=== PATIENT | female | born 1945 | race Asian ===

== ENCOUNTER 2021-03-23 22:48 | Emergency (ER) | payer OTHER ==
[2021-03-23 23:05] VITALS: BP 107/66; PULSE 103; BMI 30.2
[2021-03-24] MEDS ORDERED: ACETAMINOPHEN 1000 MG/100 ML VIAL IVPB ONE (00:26)
[2021-03-24] MEDS ORDERED: BENZOCAINE/MENTH/CETYLPYRD CL 1 EACH LOZENGE MM PRN ×2 (00:39→01:36)
[2021-03-24] MEDS ORDERED: AZITHROMYCIN IVPB 500 MG in DEXTROSE 5%-WATER - 250 ML IVPB ONE (00:41)
[2021-03-24] MEDS ORDERED: ACETAMINOPHEN INJECTION 100 ML IVPB ONE (00:44)
[2021-03-24 00:45] LABS: BASO % 0.9 % (0-2.0); EOS % 3.4 % (0-4.5); HEMATOCRIT 34.2 % (32.4-45.2); HEMOGLOBIN 11.8 GM/dL (10.7-15.3); LYMPH % 38.2 % (8-40); MCH 28.8 pg (25.7-33.7); MCHC 34.4 g/dl (32.0-36.0); MEAN CELL VOLUME 83.8 fl (80-96); MEAN PLT VOLUME 7.9 fl (7.5-11.1); MONO % 15.7 % (3.8-10.2); NEUT % 41.8 % (42.8-82.8); PLATELET COUNT 246 10^3/uL (134-434); RBC 4.08 M/mm3 (3.60-5.2); RDW 13.5 % (11.6-15.6); WHITE BLOOD COUNT 6.7 K/mm3 (4.0-10.0)
[2021-03-24] MEDS ORDERED: AZITHROMYCIN 500 MG TABLET PO ONE (00:50)
[2021-03-24 00:54] VITALS: TEMP 98.3
[2021-03-24 00:56] LABS: INR 1.09 (0.83-1.09); PROTHROMBIN TIME (PATIENT) 12.2 SEC (9.7-13.0)
[2021-03-24] MEDS ORDERED: AZITHROMYCIN 250 MG TABLET ONE (00:57)
[2021-03-24 00:59] LABS: ACTIVATED PTT 28.5 SECONDS (25.2-36.5)
[2021-03-24] MEDS ORDERED: BENZOCAINE/MENTH/CETYLPYRD CL 1 EACH LOZENGE MM ONE ×2 (00:59→01:38)
[2021-03-24 01:03] LABS: CHLORIDE 107 mmol/L (98-107); SODIUM 140 mmol/L (136-145)
[2021-03-24 01:05] LABS: CALCIUM 8.9 mg/dL (8.5-10.1)
[2021-03-24 01:06] LABS: ALBUMIN 3.5 g/dl (3.4-5.0); ANION GAP 7 MMOL/L (8-16); BLOOD UREA NITROGEN 19.6 mg/dL (7-18); CO2 25 mmol/L (21-32); GLUCOSE,RANDOM 89 mg/dL (74-106)
[2021-03-24 01:09] LABS: CREATININE 1.1 mg/dL (0.55-1.3); SGOT/AST 17 U/L (15-37); SGPT/ALT 16 U/L (13-61)
[2021-03-24 01:10] LABS: BILIRUBIN,TOTAL 0.3 mg/dL (0.2-1); TOT PROT 7.6 g/dl (6.4-8.2)
[2021-03-24 01:11] LABS: ALK PHOS 75 U/L (45-117)
[2021-03-24] MEDS ORDERED: DEXAMETHASONE LIQUID 0.5 MG/5 ML PO ONE (01:36)
[2021-03-24] MEDS ORDERED: DEXAMETHASONE SOD PHOSPHATE 10 MG/1 ML VIAL ONE (01:37)
[2021-03-24 01:40] LABS: LACTIC ACID 2.3 mmol/L (0.4-2.0)
[2021-03-24] MEDS ORDERED: LACTATED RINGERS SOLUTION 1000 ML INFUS.BAG IV ONE (01:45)
== END 2021-03-24 01:43 | disposition home or self-care (01) ==
LOC: JER 22:48
PROC: 3E03329 Introduction of Other Anti-infective into Peripheral Vein, Percutaneous Approach (ICD-10-PCS; principal; 2021-03-23)
PROC: 3E033NZ Introduction of Analgesics, Hypnotics, Sedatives into Peripheral Vein, Percutaneous Approach (ICD-10-PCS; 2021-03-23)
DX: J18.9 Pneumonia, unspecified organism (principal)
CPT/HCPCS: 36415; 71045-TC-FY; 80053; 83605; 84484; 85025; 85610; 85730; 87040; 93005; 93010; 99285-25; C9803; U0003; U0005